=== PATIENT | female | born 1950 | race Caucasian/White ===

== ENCOUNTER → 2017-03-25 | Outpatient (CLI) | payer OTHER | LOC: KOH-I 13:02 | DX: M25.512 Pain in left shoulder (principal) | CPT/HCPCS: 73030 ==

== ENCOUNTER → 2021-04-06 | Outpatient (CLI) | payer OTHER ==
[~2021-04-06] MED LIST: ASPIRIN325 MG PO; AZITHROMYCIN250 MG PO; DECADRON4 MG PO
== END ==
LOC: KOH-I 12:42
DX: M54.2 Cervicalgia (principal); M54.5 Low back pain; M25.552 Pain in left hip; M47.816 Spondylosis without myelopathy or radiculopathy, lumbar region; M47.812 Spondylosis without myelopathy or radiculopathy, cervical region; M40.202 Unspecified kyphosis, cervical region
CPT/HCPCS: 72040; 72100; 73502

== ENCOUNTER → 2021-08-16 | Outpatient (CLI) | payer OTHER | LOC: HEART 5 09:28 | DX: U07.1 COVID-19 (principal) | CPT/HCPCS: 94060; 94729 ==

== ENCOUNTER → 2021-08-23 | Outpatient (CLI) | payer OTHER | LOC: KOH-I 12:52 | DX: F17.210 Nicotine dependence, cigarettes, uncomplicated (principal); R91.8 Other nonspecific abnormal finding of lung field | CPT/HCPCS: 71271 ==

== ENCOUNTER → 2021-08-24 | Outpatient (CLI) | payer OTHER | LOC: ECHO 11:36 → NM 13:00 | DX: R06.02 Shortness of breath (principal); F17.210 Nicotine dependence, cigarettes, uncomplicated; R68.89 Other general symptoms and signs | CPT/HCPCS: ECHO; 78452; 93017; 93306; A9502; J2785 ==

== ENCOUNTER → 2021-09-13 | Outpatient (CLI) | payer OTHER ==
[2021-09-13 16:13] LABS: HEMOGLOBIN 15.2 gm/dl (12.3-15.3); RED BLOOD COUNT 4.86 M/UL (4.00-5.10); WHITE BLOOD COUNT 9.4 K/UL (4.5-11.0)
== END ==
LOC: LAB 15:20
PROVIDERS: Internal Medicine Interventional Cardiology
DX: I10 Essential (primary) hypertension (principal); R94.39 Abnormal result of other cardiovascular function study; F41.9 Anxiety disorder, unspecified; I25.10 Atherosclerotic heart disease of native coronary artery without angina pectoris; F32.A Depression, unspecified; E78.5 Hyperlipidemia, unspecified; R06.89 Other abnormalities of breathing; R53.83 Other fatigue; R06.02 Shortness of breath
CPT/HCPCS: 36415; 80053; 85025; 85610; 85730; 93005

== ENCOUNTER 2021-10-01 09:02 | Outpatient (CLI) | payer OTHER ==
[~2021-10-01] VITALS: Ht 160 cm; Wt 75.3 kg
[2021-10-01] MEDS ORDERED: NORVASC5 MG PO (09:48)
[2021-10-01] MEDS ORDERED: ASPIRIN EC81 MG PO (09:49)
[2021-10-01] MEDS ORDERED: CELEBREX200 MG PO (09:50)
[2021-10-01] MEDS ORDERED: VITAMIN B12-FO1 EACH SL (09:50)
[2021-10-01] MEDS ORDERED: CYCLOBENZAPRINE5 MG PO (09:51)
[2021-10-01] MEDS ORDERED: DICLOFENAC SOD100 GM TOP (09:53)
[2021-10-01] MEDS ORDERED: CYMBALTA30 MG PO (09:54)
[2021-10-01] MEDS ORDERED: CYMBALTA60 MG PO (09:55)
[2021-10-01] MEDS ORDERED: VITAMIN D31250 MCG PO (09:56)
[2021-10-01] MEDS ORDERED: ALLEGRA ALLERG180 MG PO (09:57)
[2021-10-01] MEDS ORDERED: ZETIA10 MG PO (09:57)
[2021-10-01] MEDS ORDERED: NEURONTIN300 MG PO (09:58)
[2021-10-01] MEDS ORDERED: HYDROXYZINE HCL25 MG PO (09:59)
[2021-10-01] MEDS ORDERED: SINGULAIR10 MG PO (10:00)
[2021-10-01] MEDS ORDERED: MELATONIN5 MG PO (10:00)
[2021-10-01] MEDS ORDERED: PROTONIX20 MG PO (10:02)
[2021-10-01] MEDS ORDERED: MUCINEX600 MG PO (10:02)
[2021-10-01 22:08] LABS: HEMOGLOBIN 14.7 gm/dl (12.3-15.3); RED BLOOD COUNT 4.54 M/UL (4.00-5.10)
[2021-10-01 22:40] LABS: BUN/CREATININE RATIO 22 (0-10)
[2021-10-02 06:26] LABS: HEMOGLOBIN 14.9 gm/dl (12.3-15.3); RED BLOOD COUNT 4.66 M/UL (4.00-5.10); WHITE BLOOD COUNT 8.7 K/UL (4.5-11.0)
[2021-10-02 06:43] LABS: BUN/CREATININE RATIO 21 (0-10)
[2021-10-02] MEDS ORDERED: ATORVASTATIN CA20 MG PO (09:08)
[2021-10-02] MEDS ORDERED: ISOSORBIDE MONO30 MG PO (09:08)
[2021-10-02] MEDS ORDERED: ASPIRIN EC81 MG PO (09:08)
[2021-10-02] MEDS ORDERED: CLOPIDOGREL75 MG PO (09:08)
[2021-10-02] MEDS ORDERED: PATIENT'S OWN MEDICA TOP (09:08)
[2021-10-02] MEDS ORDERED: NITROGLYCERIN0.4 MG SL (09:08)
[2021-10-02] MEDS ORDERED: LOPRESSOR 25 MG25 MG PO (09:08)
== END 2021-10-02 10:06 | disposition home or self-care (01) ==
LOC: CATH 09:02 → PROG CARE 15:14 → CATH 10-02 10:06
PROVIDERS: Internal Medicine Interventional Cardiology
DX: I25.118 Atherosclerotic heart disease of native coronary artery with other forms of angina pectoris (principal); I10 Essential (primary) hypertension; E78.5 Hyperlipidemia, unspecified; J44.9 Chronic obstructive pulmonary disease, unspecified; K21.9 Gastro-esophageal reflux disease without esophagitis; F41.9 Anxiety disorder, unspecified; F32.A Depression, unspecified; G47.00 Insomnia, unspecified; M54.50 Low back pain, unspecified; G89.29 Other chronic pain; M19.90 Unspecified osteoarthritis, unspecified site; F17.210 Nicotine dependence, cigarettes, uncomplicated; Z79.02 Long term (current) use of antithrombotics/antiplatelets; Z79.82 Long term (current) use of aspirin; Z79.84 Long term (current) use of oral hypoglycemic drugs; Z79.899 Other long term (current) drug therapy; Z86.16 Personal history of COVID-19; Z90.710 Acquired absence of both cervix and uterus; Z90.722 Acquired absence of ovaries, bilateral; Z90.49 Acquired absence of other specified parts of digestive tract; Z98.890 Other specified postprocedural states
CPT/HCPCS: 36415; 80048; 82550; 82553; 82962; 84484; 85027; 85347; 99152; 99153; C1725; C1769; C1874; C1887; C1894; C9600; J1644; J2250; J3010; J3246; J7030; Q9965

== ENCOUNTER → 2021-11-01 | Outpatient (CLI) | payer OTHER ==
[~2021-11-01] MED LIST changes: +ALLEGRA ALLERG180 MG PO; +ASPIRIN EC81 MG PO; +ATORVASTATIN CA20 MG PO; +CELEBREX200 MG PO; +CLOPIDOGREL75 MG PO; +CYCLOBENZAPRINE5 MG PO; +CYMBALTA30 MG PO; +CYMBALTA60 MG PO; +DICLOFENAC SOD100 GM TOP; +HYDROXYZINE HCL25 MG PO; +ISOSORBIDE MONO30 MG PO; +LOPRESSOR 25 MG25 MG PO; +MELATONIN5 MG PO; +MUCINEX600 MG PO; +NEURONTIN300 MG PO; +NITROGLYCERIN0.4 MG SL; +NORVASC5 MG PO; +PATIENT'S OWN MEDICA TOP; +PROTONIX20 MG PO; +SINGULAIR10 MG PO; +VITAMIN B12-FO1 EACH SL; +VITAMIN D31250 MCG PO; +ZETIA10 MG PO
== END ==
LOC: HEART 5 09:57
DX: R06.00 Dyspnea, unspecified (principal)
CPT/HCPCS: 94060; 94729

== ENCOUNTER → 2022-01-24 | Outpatient (CLI) | payer OTHER | LOC: MAMO 10:30 | DX: Z12.31 Encounter for screening mammogram for malignant neoplasm of breast (principal) | CPT/HCPCS: 77063; 77067 ==

== ENCOUNTER → 2022-04-24 | Outpatient (CLI) | payer OTHER | LOC: EXRD 13:51 | DX: M79.642 Pain in left hand (principal); M25.532 Pain in left wrist; M19.032 Primary osteoarthritis, left wrist; M19.042 Primary osteoarthritis, left hand | CPT/HCPCS: 73100; 73120 ==

== ENCOUNTER 2022-05-27 15:22 | Emergency (ER) | payer OTHER ==
[2022-05-27 16:28] LABS: HEMOGLOBIN 15.4 gm/dl (12.3-15.3); RED BLOOD COUNT 4.79 M/UL (4.00-5.10); WHITE BLOOD COUNT 5.6 K/UL (4.5-11.0)
[2022-05-27 16:49] LABS: BUN/CREATININE RATIO 20 (0-10)
== END 2022-05-27 18:03 | disposition home or self-care (01) ==
LOC: ER1 15:22
PROVIDERS: Emergency Medicine
DX: U07.1 COVID-19 (principal); I10 Essential (primary) hypertension; F17.200 Nicotine dependence, unspecified, uncomplicated; I25.10 Atherosclerotic heart disease of native coronary artery without angina pectoris; Z95.5 Presence of coronary angioplasty implant and graft
CPT/HCPCS: 71045; 80053; 85025; 99283

== ENCOUNTER → 2022-05-31 | Outpatient (CLI) | payer OTHER | LOC: KOH-I 14:35 | DX: U07.1 COVID-19 (principal); J20.9 Acute bronchitis, unspecified | CPT/HCPCS: 71046 ==

== ENCOUNTER → 2022-07-09 | Outpatient (CLI) | payer OTHER | LOC: EMI 11:12 | DX: M25.532 Pain in left wrist (principal) | CPT/HCPCS: 73221 ==